=== PATIENT | male | born 1990 | race Hispanic/Latino ===

== ENCOUNTER 2018-03-31 00:51 | Emergency (ER) | payer MEDICAID ==
[2018-03-31 01:26] VITALS: BMI 23.1
[2018-03-31 01:31] VITALS: RESP 18; O2SAT 100
--- NOTE | 2018-03-31 03:08 | ED PDOC ---
HPI: Psych/Substance Abuse Time Seen by Provider: 03/31/18 01:38 Chief Complaint (Nursing): Psychiatric Evaluation History Per: Patient, EMS Additional Complaint(s): As per EMS pt.'s roommate (Carmelo) called 911 today on patient because he believes that pt. wants to harm himself. Carmelo informed EMS that pt. has a "loaded shot gun underneath his bed." Also states he found empty pill bottles underneath his bed. Further states that pt.'s father 2 weeks ago. Pt. states he does not want to harm himself. States that he does have a shotgun which is not loaded underneath his bed which is a family heirloom. Further states that he does take Adderral and Clonazepam and keeps the empty bottles underneath his bed because he does not want to throw out the pill bottles as it has his personal information on it. Pt. offers no complaints at this time. States that his roommate is "going through a lot." Denies SI/HI, hallucinations. Past Medical History Reviewed: Historical Data, Nursing Documentation, Vital Signs Vital Signs: Last Vital Signs Temp 97.8 F 03/31/18 01:26 Pulse 72 03/31/18 01:26 Resp 18 03/31/18 01:26 BP 115/76 03/31/18 01:26 Pulse Ox 100 03/31/18 01:26 - Family History Family History: States: No Known Family Hx - Allergies Allergies/Adverse Reactions: Allergies Allergy/AdvReac Type Severity Reaction Status Date / Time No Known Allergies Allergy Verified 03/31/18 01:25 Review of Systems ROS Statement: Except As Marked, All Systems Reviewed And Found Negative Physical Exam - Reviewed Nursing Documentation Reviewed: Yes Vital Signs Reviewed: Yes - Physical Exam Appears: Positive for: Well, Non-toxic, No Acute Distress Head Exam: Positive for: ATRAUMATIC, NORMAL INSPECTION, NORMOCEPHALIC Skin: Positive for: Normal Color, Warm. Negative for: Rash Eye Exam: Positive for: Normal appearance Neck: Positive for: Normal, Painless ROM Cardiovascular/Chest: Positive for: Regular Rate, Rhythm Respiratory: Positive for: CNT, Normal Breath Sounds Gastrointestinal/Abdominal: Positive for: Soft. Negative for: Tenderness Extremity: Positive for: Normal ROM Neurologic/Psych: Positive for: Alert, Oriented, Mood/Affect (calm, cooperative) . Negative for: Aphasia, Facial Droop - ECG O2 Sat by Pulse Oximetry: 100 - Progress ED Course And Treament: Pt. placed on 1:1. Crisis evaluation ordered. [id number]iar[address], body worker, spoke with Dr. Mcclelland and cleared pt. for discharge. Disposition - Clinical Impression Clinical Impression: Adjustment disorder - Patient ED Disposition Is Patient to be Admitted: No - Disposition Disposition: Routine/Home Disposition Time: 05:58 Condition: STABLE Instructions: Adjustment Disorder Forms: [facility] (Nepali) Print Language: [email or web address]
[2018-03-31 06:22] VITALS: BP 110/66; PULSE 60; TEMP 97.4
== END 2018-03-31 06:30 | disposition home or self-care (01) ==
LOC: H.ER 00:51
DX: F43.20 Adjustment disorder, unspecified (principal)